=== PATIENT | female | born 1985 | race Hispanic/Latino ===

== ENCOUNTER 2021-09-08 08:23 | Outpatient (CLI) | payer BC, OTHER ==
[2021-09-08 15:06] LABS: Hemoglobin 11.2 g/dL (12.0-15.5); Mean Corpuscular HGB CONC 31.1 g/dL (32.0-36.0); Mean Corpuscular Hemoglobin 27.7 pg (27.0-33.0); Mean Corpuscular Volume 89.1 fl (81.6-98.3); Mean Platelet Volume 11.5 fl (7.4-10.4); Platelet Count 258 10x3/uL (150-450); RBC Distribution Width 21.1 % (11.5-14.5); Red Blood Cell (RBC) Count 4.04 10x6/uL (3.90-5.03); White Blood Cell (WBC) Count 8.8 10x3/uL (3.5-10.5)
[2021-09-08 15:46] LABS: Hep B Surf Ag Non-Reactive S/CO (NonReactive); Syphilis Antibody Nonreactive (Nonreactive); Syphilis Antibody Index 0.03 S/CO (<1.00 Non-Reactive)
[2021-09-08 15:51] LABS: HBSAg Index 0.18 S/CO (0-0.99)
[2021-09-08 23:19] LABS: SARS-CoV-2 PCR by NAA Not Detected (NotDetected)
== END 2021-09-08 08:24 | disposition home or self-care (01) ==
LOC: CSHLAB 08:23
PROVIDERS: ATTEND Obstetrics & Gynecology
DX: Z01.812 Encounter for preprocedural laboratory examination (principal); Z20.822 Contact with and (suspected) exposure to COVID-19
CPT/HCPCS: 85027; 86780; 86900; 86901; 87340; U0003; U0005

== ENCOUNTER 2021-09-12 09:59 | Inpatient (IN) | payer BC ==
[2021-09-12] MEDS ORDERED: Bicitra 30 ML UDCUP PO PRN (11:03)
[2021-09-12] MEDS ORDERED: hydrALAZINE 20 MG/ML VIAL SLOW IVP PRN ×2 (11:03→15:22)
[2021-09-12] MEDS ORDERED: Ondansetron PF 4 MG/2 ML Vial IVP PRN ×4 (11:03→17:12)
[2021-09-12] MEDS ORDERED: Lactated Ringer's 1,000 ML IV SCH (11:03)
[2021-09-12] MEDS ORDERED: Famotidine/PF 20 mg/2ml Vial SLOW IVP PRN (11:03)
[2021-09-12] MEDS ORDERED: Promethazine HCl 25 MG/ML VIAL IM PRN ×3 (11:03→17:12)
[2021-09-12] MEDS ORDERED: ceFAZolin 2 GM/Dextrose 50 ML 2 GM in Premix Bag 1 BAG IVPB SCH (11:03)
[2021-09-12 11:04] VITALS: BMI 34.2
[2021-09-12] MEDS ORDERED: Hydrocerin (Eucerin) Cream 120 gm Jar TOP PRN ×2 (11:04→17:12)
[2021-09-12] MEDS ORDERED: Naloxone HCl 0.4 mg/ml Vial IVP PRN ×4 (11:04→17:12)
[2021-09-12] MEDS ORDERED: Naloxone HCl 0.4 mg/ml Vial IV PRN ×2 (11:04→17:12)
[2021-09-12] MEDS ORDERED: Meperidine HCl/PF 25 MG/ML VIAL SLOW IVP PRN (11:04)
[2021-09-12] MEDS ORDERED: Fentanyl 100 MCG/2 ML VIAL SLOW IVP PRN (11:04)
[2021-09-12] MEDS ORDERED: HYDROmorphone 2 MG/ML VIAL SLOW IVP PRN (11:04)
[2021-09-12] MEDS ORDERED: Promethazine HCl 25 MG SUPP PR PRN ×2 (11:04→17:12)
[2021-09-12] MEDS ORDERED: diphenhydrAMINE 50 MG/ML VIAL IVP PRN ×2 (11:04→17:12)
[2021-09-12] MEDS ORDERED: Ondansetron HCl/PF 4 MG/2 ML Vial IVP PRN (11:04)
[2021-09-12] MEDS ORDERED: Ketorolac Tromethamine 30 MG/ML VIAL IVP PRN ×2 (11:04→17:08)
[2021-09-12] MEDS ORDERED: Communication Order-Pharmacy FS PRN (11:15)
[2021-09-12] MEDS ORDERED: Ketorolac Tromethamine 30 MG/ML VIAL IVP SCH (11:15)
[2021-09-12 11:16] LABS: Hemoglobin 11.5 g/dL (12.0-15.5); Mean Corpuscular HGB CONC 31.6 g/dL (32.0-36.0); Mean Corpuscular Hemoglobin 27.8 pg (27.0-33.0); Mean Corpuscular Volume 87.9 fl (81.6-98.3); Mean Platelet Volume 10.2 fl (7.4-10.4); Platelet Count 268 10x3/uL (150-450); RBC Distribution Width 20.7 % (11.5-14.5); Red Blood Cell (RBC) Count 4.14 10x6/uL (3.90-5.03); White Blood Cell (WBC) Count 9.1 10x3/uL (3.5-10.5)
[2021-09-12] MEDS ORDERED: Morphine PF 10 MG/10 ML VIAL ONE (11:42)
[2021-09-12] MEDS ORDERED: Oxytocin 10 UNITS/ML VIAL ONE (11:43)
[2021-09-12] MEDS ORDERED: Ondansetron PF 4 MG/2 ML Vial ONE (11:43)
[2021-09-12] MEDS ORDERED: Phenylephrine 10 MG/ML VIAL ONE (11:43)
[2021-09-12] MEDS ORDERED: Ketorolac Tromethamine 30 MG/ML VIAL ONE (11:43)
[2021-09-12 11:48] LABS: Hep B Surf Ag Non-Reactive S/CO (NonReactive)
[2021-09-12 12:12] LABS: HBSAg Index 0.15 S/CO (0-0.99)
[2021-09-12] MEDS ORDERED: ePHEDrine Sulfate 50 MG/10 ML VIAL ONE (12:48)
[2021-09-12] MEDS: Fentanyl 100 MCG/2 ML VIAL ONE ×2 (14:50→15:18)
[2021-09-12] MEDS ORDERED: NS w/ Oxytocin 30 units 500 ML ONE (15:03)
[2021-09-12] MEDS ORDERED: Fentanyl 100 MCG/2 ML VIAL ONE (15:20)
[2021-09-12] MEDS ORDERED: Simethicone Chewable 80 MG TAB PO PRN (15:22)
[2021-09-12] MEDS ORDERED: Bisacodyl 10 MG SUPP PR PRN (15:22)
[2021-09-12] MEDS ORDERED: Lanolin Ointment 7 GM TUBE TOP PRN (15:22)
[2021-09-12] MEDS ORDERED: HYDROcodone/Acetaminophen 5/325 mg Tablet PO PRN ×2 (15:22)
[2021-09-12] MEDS ORDERED: Boostrix 0.5 ML (Tdap) VIAL IM ONE (15:22)
[2021-09-12] MEDS ORDERED: Acetaminophen 325 MG TAB PO PRN (15:28)
[2021-09-12] MEDS: Ibuprofen 800 MG TAB PO SCH ×2 (16:25→20:51)
[2021-09-12] MEDS ORDERED: Communication Order-Pharmacy FS SCH (17:15)
[2021-09-12] MEDS: Ferrous Sulfate 325 MG TAB PO SCH (20:52)
[2021-09-12] MEDS ORDERED: Zolpidem Tartrate 5 MG TAB PO PRN (21:00)
[2021-09-12] MEDS: Docusate 100 MG CAP PO SCH (21:15)
[2021-09-12] MEDS: Ketorolac Tromethamine 30 MG/ML VIAL IVP PRN (21:15)
[2021-09-13] MEDS: Ketorolac Tromethamine 30 MG/ML VIAL IVP PRN (04:37)
[2021-09-13 04:58] LABS: Hemoglobin 9.6 g/dL (12.0-15.5); Mean Corpuscular HGB CONC 31.1 g/dL (32.0-36.0); Mean Corpuscular Hemoglobin 27.8 pg (27.0-33.0); Mean Corpuscular Volume 89.6 fl (81.6-98.3); Mean Platelet Volume 10.4 fl (7.4-10.4); Platelet Count 231 10x3/uL (150-450); RBC Distribution Width 20.5 % (11.5-14.5); Red Blood Cell (RBC) Count 3.45 10x6/uL (3.90-5.03); White Blood Cell (WBC) Count 10.8 10x3/uL (3.5-10.5)
[2021-09-13] MEDS: Prenatal Vitamin 1 TAB PO SCH (08:44)
[2021-09-13] MEDS: Docusate 100 MG CAP PO SCH ×2 (08:44→22:05)
[2021-09-13] MEDS ORDERED: HYDROcodone/Acetaminophen 5/325 mg Tablet PO PRN (09:47)
[2021-09-13] MEDS: Ferrous Sulfate 325 MG TAB PO SCH ×2 (10:19→22:05)
[2021-09-13] MEDS: Ibuprofen 800 MG TAB PO SCH ×2 (15:33→22:06)
[2021-09-13] MEDS: HYDROcodone/Acetaminophen 5/325 mg Tablet PO PRN (19:31)
[2021-09-14] MEDS: Ibuprofen 800 MG TAB PO SCH ×2 (05:18→15:26)
[2021-09-14] MEDS: Ferrous Sulfate 325 MG TAB PO SCH (09:15)
[2021-09-14] MEDS: Prenatal Vitamin 1 TAB PO SCH (09:16)
[2021-09-14] MEDS: Docusate 100 MG CAP PO SCH (09:16)
[2021-09-14] MEDS: HYDROcodone/Acetaminophen 5/325 mg Tablet PO PRN ×2 (09:35→19:06)
[2021-09-14 19:35] VITALS: BP 112/56; TEMP 98.4
== END 2021-09-14 19:50 | disposition home or self-care (01) | DRG 785 ==
LOC: CSHLD 09:59 → CSHPP 15:40
PROVIDERS: ADMIT Obstetrics & Gynecology; ATTEND Obstetrics & Gynecology
PROC: 10D00Z1 Extraction of Products of Conception, Low, Open Approach (ICD-10-PCS; principal; 2021-09-12)
PROC: 0UB70ZZ Excision of Bilateral Fallopian Tubes, Open Approach (ICD-10-PCS; 2021-09-12)
DX: O34.211 Maternal care for low transverse scar from previous cesarean delivery (principal); O35.8XX0 Maternal care for other (suspected) fetal abnormality and damage, not applicable or unspecified; Z37.0 Single live birth; Z3A.39 39 weeks gestation of pregnancy; Z88.2 Allergy status to sulfonamides; Z88.1 Allergy status to other antibiotic agents; Z88.8 Allergy status to other drugs, medicaments and biological substances; Z80.9 Family history of malignant neoplasm, unspecified; Z40.03 Encounter for prophylactic removal of fallopian tube(s)
CPT/HCPCS: 36415; 51702; 85027; 86850; 86900; 86901; 87340; 88302; J0690; J1885; J2274; J2370; J2405; J2590; J3010; J7120; S0028

== ENCOUNTER 2022-06-29 03:08 | Emergency (ER) | payer BC, MEDICAID, OTHER ==
[2022-06-29 04:03] LABS: #Basophils 0.1 10x3/uL (0.0-0.2); #Eosinphils 0.1 10x3/uL (0.0-0.5); #Monocytes 0.5 10x3/uL (0.0-1.1); %Basophils 0.5 % (0.0-2.0); %Eosinophils 0.8 % (0.0-6.0); %Lymphocytes 17.4 % (18.0-47.0); %Neutrophils 76.9 % (40.0-75.0); Hemoglobin 12.3 g/dL (12.0-15.5); Mean Corpuscular HGB CONC 33.2 g/dL (32.0-36.0); Mean Corpuscular Hemoglobin 29.2 pg (27.0-33.0); Mean Corpuscular Volume 88.1 fl (81.6-98.3); Mean Platelet Volume 10.9 fl (7.4-10.4); Platelet Count 267 10x3/uL (150-450); RBC Distribution Width 13.7 % (11.5-14.5); Red Blood Cell (RBC) Count 4.21 10x6/uL (3.90-5.03)
[2022-06-29 04:11] LABS: BHCG - Serum Negative (NEGATIVE); Pregs Control Background? CLEAR/WHITE (CLR/WHITE); Pregs Control Bar Appear? YES (CONTROL BAR)
[2022-06-29 04:47] LABS: ALT (SGPT) 10 U/L (8-55); AST (SGOT) 11 U/L (5-34); Albumin 4.1 g/dL (3.5-5.0); Alkaline Phosphatase 70 U/L (40-110); Anion Gap 13 mmol/L (10-20); BUN (Urea Nitrogen) 15 mg/dL (7.0-18.7); Bilirubin, Total 0.5 mg/dL (0.2-1.2); Calc. Creatinine Clearance 0 mL/min (70-130); Calcium 8.8 mg/dL (7.8-10.44); Carbon Dioxide 22 mmol/L (22-29); Chloride 108 mmol/L (98-107); Estimated GFR 107; Globulin 2.9 g/dL (2.4-3.5); Glucose 129 mg/dL (70-105); Lipase 15 U/L (8-78); Potassium 3.7 mmol/L (3.5-5.1); Sodium 139 mmol/L (136-145)
[2022-06-29 05:32] LABS: Clarity Clear (Clear); Specific Gravity, Urine 1.025 (1.005-1.030)
[2022-06-29 05:33] LABS: Bilirubin Negative (Negative); Blood, Urine 25 (Negative); Glucose, Urine (Dipstick) Negative (Negative); Ketone, Urine Negative (Negative); Leukocyte Negative (Negative); Nitrite Negative (Negative); Protein, Urine (Dipstick) 30 mg/dl (Neg-Trace); Urobilinogen Normal mg/dL (Less than 2)
[2022-06-29 05:36] LABS: Bacteria/HPF None Seen HPF (None Seen); RBC/HPF 0-3 HPF (0-3); WBC/HPF 0-3 HPF (0-3)
== END 2022-06-29 06:20 | disposition home or self-care (01) ==
LOC: CSHERS 03:08
DX: N13.2 Hydronephrosis with renal and ureteral calculous obstruction (principal); Z87.891 Personal history of nicotine dependence
CPT/HCPCS: 74176; 80053; 81003; 81015; 83690; 84703; 85025; 96360